=== PATIENT | female | born 1990 | race Two or more races ===

== ENCOUNTER → 2019-07-03 | Outpatient (CLI) | payer OTHER | END | disposition home or self-care (01) | LOC: LAB 14:22 | PROVIDERS: ATTEND Preventive Medicine Preventive Medicine/Occupational Environmental Medicine | DX: Z02.1 Encounter for pre-employment examination (principal) | CPT/HCPCS: 36415; 86706; 86735; 86762; 86765; 86787 ==

== ENCOUNTER → 2020-02-23 | Outpatient (CLI) | payer OTHER | END | disposition home or self-care (01) | LOC: LAB 10:08 | PROVIDERS: ATTEND Internal Medicine | DX: Z03.818 Encounter for observation for suspected exposure to other biological agents ruled out (principal) ==

== ENCOUNTER → 2020-05-06 | Outpatient (CLI) | payer OTHER | END | disposition home or self-care (01) | LOC: LAB 08:41 | PROVIDERS: ATTEND Nurse Practitioner Family | DX: U07.1 COVID-19 (principal) ==

== ENCOUNTER → 2023-08-28 | Outpatient (CLI) | payer BC ==
[2023-08-28 07:50] LABS: Basophils # (auto) 0 10 ^3/uL (0-0.2); Basophils % (auto) 0.5 % (0.0-2.0); Eosinophils # (auto) 0.1 10 ^3/uL (0-0.8); Eosinophils % (auto) 1.3 % (0.0-7.0); Hematocrit 39.5 % (36.0-46.0); Hemoglobin 13.3 g/dL (12.2-16.2); Lymphocytes # (auto) 2.1 10 ^3/uL (0.4-5.4); Lymphocytes % (auto) 27.6 % (10.0-50.0); Mean Corpuscular Hgb Conc. 33.6 g/dL (32.0-36.0); Mean Corpuscular Volume 92.4 fL (80.0-100.0); Monocytes # (auto) 0.3 10 ^3/uL (0-1.3); Monocytes % (auto) 4.5 % (0.0-12.0); Neutrophils # (auto) 4.9 10 ^3/uL (1.6-8.6); Neutrophils % (auto) 66.1 % (37.0-80.0); Nucleated Red Blood Cells % 0.1 %; Red Blood Cells 4.28 10^6/uL (4.0-5.20); Red Cell Distribution Width 13.8 % (11.8-14.3); White Blood Cell 7.5 10^3/uL (4.4-10.8)
[2023-08-28 07:58] LABS: Urine Bacteria NONE SEEN /hpf (None Seen); Urine Blood Negative /uL (Negative); Urine Clarity Clear (Clear); Urine Protein, UAD Negative (Negative); Urine Specific Gravity 1.014 (1.001-1.035); Urine Urobilinogen Normal (Negative); Urine WBC 1 /hpf (0 - 5)
[2023-08-28 07:59] LABS: Urine Color Straw (Yellow)
[2023-08-28 08:40] LABS: Alanine Aminotransferase 19 U/L (7-40); Albumin 4.9 g/dL (3.2-4.8); Alkaline Phosphatase 93 U/L (46-116); Anion Gap 8 (5-15); Aspartate Aminotransferase 15 U/L (13-40); Bilirubin, Total 0.8 mg/dL (0.2-1.0); Blood Urea Nitrogen 8 mg/dL (9-23); Calcium 9.7 mg/dL (8.5-10.1); Carbon Dioxide 26 mmol/L (20-30); Chloride 105 mmol/L (98-107); Cholesterol 169 mg/dL (< 200); Glucose 89 mg/dL (74-106); HDL Cholesterol 43 mg/dL (40-59); LDL Cholesterol 116 mg/dL (< 100); Potassium 4.3 mmol/L (3.5-5.1); Sodium 139 mmol/L (136-145); Total Protein 7.9 g/dL (5.7-8.2); Triglycerides 140 mg/dL (< 150)
== END | disposition home or self-care (01) ==
LOC: LAB 07:20
PROVIDERS: ATTEND Internal Medicine
DX: Z00.00 Encounter for general adult medical examination without abnormal findings (principal); N92.4 Excessive bleeding in the premenopausal period; E66.3 Overweight
CPT/HCPCS: 36415; 80053; 80061; 81001; 83036; 84443; 85025

== ENCOUNTER → 2023-10-25 | Outpatient (CLI) | payer BC | END | disposition home or self-care (01) | LOC: LAB 07:51 | PROVIDERS: ATTEND Internal Medicine | DX: E03.9 Hypothyroidism, unspecified (principal) | CPT/HCPCS: 36415; 84443; 86376 ==

== ENCOUNTER → 2024-08-03 | Outpatient (CLI) | payer BC ==
[2024-08-03 14:04] LABS: Basophils # (auto) 0 10 ^3/uL (0-0.2); Basophils % (auto) 0.5 % (0.0-2.0); Eosinophils # (auto) 0.1 10 ^3/uL (0-0.8); Hematocrit 38.3 % (36.0-46.0); Hemoglobin 13.4 g/dL (12.2-16.2); Lymphocytes # (auto) 2.4 10 ^3/uL (0.4-5.4); Lymphocytes % (auto) 32.4 % (10.0-50.0); Mean Corpuscular Hemoglobin 31.5 pg (28.0-32.0); Mean Corpuscular Hgb Conc. 34.9 g/dL (32.0-36.0); Mean Corpuscular Volume 90.1 fL (80.0-100.0); Monocytes # (auto) 0.3 10 ^3/uL (0-1.3); Monocytes % (auto) 3.5 % (0.0-12.0); Neutrophils # (auto) 4.6 10 ^3/uL (1.6-8.6); Neutrophils % (auto) 61.6 % (37.0-80.0); Platelet Count (auto) 340 10^3/uL (140-450); Red Blood Cells 4.25 10^6/uL (4.0-5.20); White Blood Cell 7.4 10^3/uL (4.4-10.8)
[2024-08-03 14:25] LABS: Alanine Aminotransferase 17 U/L (7-40); Albumin 4.6 g/dL (3.2-4.8); Alkaline Phosphatase 93 U/L (46-116); Anion Gap 5 (5-15); Aspartate Aminotransferase 9 U/L (13-40); BUN/Creatinine Ratio 11.3 (10.0-20.0); Blood Urea Nitrogen 9 mg/dL (9-23); Calcium 10.4 mg/dL (8.7-10.4); Carbon Dioxide 29 mmol/L (20-31); Chloride 105 mmol/L (98-107); Glucose 89 mg/dL (74-106); Potassium 4.1 mmol/L (3.5-5.1); Sodium 139 mmol/L (136-145)
[2024-08-03 14:26] LABS: Bilirubin, Total 0.6 mg/dL (0.2-1.0); Total Protein 7.3 g/dL (5.7-8.2)
[2024-08-03 14:37] LABS: Erythrocyte Sedimentation Rate 17 mm/hr (0-20)
== END | disposition home or self-care (01) ==
LOC: LAB 13:22
PROVIDERS: ATTEND Internal Medicine
DX: E03.9 Hypothyroidism, unspecified (principal); M25.511 Pain in right shoulder; M25.521 Pain in right elbow
CPT/HCPCS: 36415; 80053; 83036; 84443; 85025; 85652

== ENCOUNTER 2025-04-12 07:10 | Inpatient (IN) | payer BC ==
[2025-04-09 08:23] LABS: INR 1.01 (0.9-1.15); Partial Thromboplastin Time 27.9 SEC (24.5-34.5); Prothrombin Time 10.7 sec (9.3-11.8)
[2025-04-09 08:26] LABS: Hematocrit 41.2 % (36.0-46.0); Hemoglobin 14.2 g/dL (12.2-16.2); Mean Corpuscular Hemoglobin 31.0 pg (28.0-32.0); Mean Corpuscular Volume 89.8 fL (80.0-100.0); Nucleated Red Blood Cells % 0.1 %
[2025-04-09 08:41] LABS: Alanine Aminotransferase 14 U/L (7-40); Albumin 4.8 g/dL (3.2-4.8); Alkaline Phosphatase 69 U/L (46-116); Anion Gap 11 (5-15); BUN/Creatinine Ratio 11.6 (10.0-20.0); Bilirubin, Total 0.9 mg/dL (0.2-1.0); Blood Urea Nitrogen 8 mg/dL (9-23); Calcium 10.4 mg/dL (8.7-10.4); Carbon Dioxide 25 mmol/L (20-31); Chloride 105 mmol/L (98-107); Glucose 92 mg/dL (74-106); Potassium 4.3 mmol/L (3.5-5.1); Sodium 141 mmol/L (136-145); Total Protein 7.5 g/dL (5.7-8.2)
[2025-04-09 12:46] LABS: Urine Protein, UAD Negative (Negative)
[~2025-04-12] VITALS: Ht 152.4 cm; Wt 62.6 kg
[~2025-04-12 07:10] MED LIST: LEVO25TA6 PO
[2025-04-12] MEDS: ceFAZolin 2 GM/D5W50ml 50 ML IV ONE (08:42)
[2025-04-12] MEDS: SUCCINYLCHOLINE CHLORIDE 20 MG/ML 10ML VIAL IV ONE (09:30)
[2025-04-12] MEDS ORDERED: fentaNYL CITRATE 100 MCG/2 ML VL ONE (09:33)
[2025-04-12] MEDS ORDERED: HYDROmorphone HCL 2 MG/ML VL/or syr ONE (09:33)
[2025-04-12] MEDS ORDERED: ONDANSETRON HCL 4 MG/2 ML VIAL ONE (10:43)
[2025-04-12] MEDS ORDERED: ROCURONIUM 10MG/ML 10ML VIAL IV ONE (10:47)
[2025-04-12] MEDS: LIDOCAINE W/ EPINEPHRINE 1% 20ML VIAL ONE (11:20)
[2025-04-12] MEDS: BUPIVACAINE 0.5% P/F INJ 10 ML VIAL ONE (11:20)
[2025-04-12] MEDS ORDERED: SUGAMMADEX 200mg/2ml Vial (100MG/ML) IV ONE (11:29)
[2025-04-12] MEDS: POVIDONE IODINE 10 % TOPICAL OINT 30GM TOP ONE (11:31)
[2025-04-12 11:37] VITALS: PULSE 93; RESP 20
[2025-04-12] MEDS: D5W/SOD CHL 0.45%/KCL 20MEQ 1,000 ML IV SCH (11:45)
[2025-04-12] MEDS ORDERED: ONDANSETRON HCL 4 MG/2 ML VIAL IV PRN (11:45)
[2025-04-12] MEDS: ONDANSETRON HCL 4 MG/2 ML VIAL IV ONE (11:45)
[2025-04-12] MEDS ORDERED: MEPERIDINE HCL (25 MG/ML) 1ML VIAL IV PRN (11:45)
[2025-04-12] MEDS: HYDROmorphone HCL 2 MG/ML VL/or syr ONE (12:00)
[2025-04-12] MEDS: HYDROmorphone HCL 2 MG/ML VL/or syr IV PRN (12:14)
--- NOTE | 2025-04-12 12:19 | DVHOP ---
DATE OF SURGERY: 04/12/2025 PREOPERATIVE DIAGNOSES: Cholelithiasis, cholecystitis. POSTOPERATIVE DIAGNOSES: Cholelithiasis, cholecystitis. SURGEON: Mak Hagen MD ANESTHESIA: General endotracheal. ANESTHESIOLOGIST: Dr. Bell. PROCEDURES: Laparoscopy, laparoscopic cholecystectomy DESCRIPTION OF PROCEDURE: Under general endotracheal anesthesia, the patient's skin was prepped and draped. A supraumbilical incision was made and Veress needle inserted by the hanging drop technique in order to establish pneumoperitoneum to 15 mmHg pressure by insufflation with carbon dioxide. With the abdomen fully distended, the needle was removed and replaced with a 5-mm trocar port through which a 0-degree viewing laparoscope was inserted and under direct vision 5 and 10 mm ports were inserted through the abdominal wall at the anterior axillary line at the level of the umbilicus and in the subxiphoid skin in the midline, respectively. Instrumentation was then introduced and laparoscopy was performed. There was no evidence of unexpected pathology on the serosal surfaces visualized. The gallbladder, which was almost entirely intrahepatic, was grasped with a grasping forceps and placed on tension. The infundibular portion of the gallbladder, the cystic duct was identified and was completely obstructed by a large stone within the gallbladder. The cystic duct and cystic artery were identified, circumferentially dissected and skeletonized and traced into the hepatocystic triangle so as to minimize the potential for inadvertent injury to the common bile duct. The cystic duct and cystic artery were then divided between metallic clips placed close to the gallbladder, again attempting to avoid injury to the common bile duct. The cystic duct and cystic artery having been divided between metallic clips. The gallbladder was resected from its liver bed by electrocautery and traction. The entirely intrahepatic nature of the gallbladder made the dissection somewhat more challenging. With the gallbladder fully mobilized, it was placed into a specimen extraction bag, which was introduced through the 10-mm port site. The gallbladder being within the bag was then removed from the peritoneal cavity. The right upper quadrant was thoroughly irrigated. Irrigant was aspirated. Hemostasis was meticulously inspected and found to be complete at the termination of the procedure. There was no evidence of bleeding from either the gallbladder bed or from the port sites. The right upper quadrant was irrigated. Irrigant was then aspirated. Instrumentation was withdrawn. Pneumoperitoneum was evacuated. Fascial defect was closed using 0 Vicryl. Metallic skin elizabeth were used for approximation of skin edges. The patient remained stable throughout the procedure, left the operating room following an accurate needle and sponge count and her boyfriend, Albert, was thoroughly informed at [phone]. MD NAVEED Bermeo/JABARI TID: [id number] RECEIPT: [id number]
[2025-04-12] MEDS: diphenhdrAMINE HCL 50 MG/1 ML VL IV ONE ×2 (13:15→14:04)
[2025-04-12] MEDS: diphenhdrAMINE HCL 50 MG/1 ML VL ONE (13:18)
[2025-04-12] MEDS: ACETAMINOPHEN IV 1000 MG/100ML (10MG/ML) IV PRN (13:56)
[2025-04-12] MEDS ORDERED: ceFAZolin 2 GM/D5W50ml 50 ML IV SCH (14:00)
[2025-04-12] MEDS: ACETAMINOPHEN IV 100 ML IV ONE (14:06)
--- NOTE | 2025-04-12 14:14 | DVHHP2 ---
Review of Systems Allergies: Coded Allergies: Hydrocodone (Unverified Allergy, Intermediate, itchy, 04/07/25) Medications Current Medications Medications Dose Ordered Sig/Panchito Route Start Time Stop Time Status Last Admin Dose Admin Potassium Chloride/Dextrose/ Sod Cl 1,000 ml @ 120 mls/hr Q8H20M IV 04/12/25 11:45 04/12/25 11:45 120 MLS/HR Pantoprazole Sodium 40 mg DAILY IV 04/13/25 10:00 Ondansetron HCl 4 mg Q4HPRN PRN IV 04/12/25 11:45 Meperidine HCl 12.5 mg Q4HP PRN IV 04/12/25 11:45 Cefazolin Sodium/ Dextrose 50 ml @ 50 mls/hr Q8H IV 04/12/25 18:00 Exam Vital Signs Vital Signs Date Time Temp Pulse Resp B/P (MAP) Pulse Ox O2 Delivery O2 Flow Rate FiO2 04/12/25 13:22 81 11 101/64 (76) 100 04/12/25 11:50 Nasal Cannula 2.0 04/12/25 11:37 97.8 97.8 Labs/Xrays Labs Test 04/09/25 12:00 04/09/25 07:54 Range/Units Urine Color Light-yellow Yellow Urine Clarity Hazy H Clear Urine pH 6.5 5.0-9.0 Urine Specific [place] 1.009 1.001-1.035 Urine Protein Negative Negative Urine Ketones Negative Negative Urine Blood Negative Negative /uL Urine Nitrite Negative Negative Urine Bilirubin Negative Negative Urine Urobilinogen Normal Negative mg/dL Urine Leukocyte Esterase Negative Negative /uL Urine RBC <1 0 - 4 /hpf Urine Microscopic WBC 1 0-5 /HPF Urine Squamous Epithelial Cells Mod <5 /hpf Urine Bacteria Few H None Seen /hpf Urine Glucose Normal Normal mg/dL White Blood Count 7.4 4.4-10.8 10^3/uL Red Blood Count 4.59 4.0-5.20 10^6/uL Hemoglobin 14.2 12.2-16.2 g/dL Hematocrit 41.2 36.0-46.0 % Mean Corpuscular Volume 89.8 80.0-100.0 fL Mean Corpuscular Hemoglobin 31.0 28.0-32.0 pg Mean Corpuscular Hemoglobin Concent 34.5 32.0-36.0 g/dL Red Cell Distribution Width 13.2 11.8-14.3 % Platelet Count 321 140-450 10^3/uL Mean Platelet Volume 8.1 6.9-10.8 fL Neutrophils (%) (Auto) 64.0 37.0-80.0 % Lymphocytes (%) (Auto) 27.7 10.0-50.0 % Monocytes (%) (Auto) 5.7 0.0-12.0 % Eosinophils (%) (Auto) 2.1 0.0-7.0 % Basophils (%) (Auto) 0.5 0.0-2.0 % Neutrophils # (Auto) 4.7 1.6-8.6 10 ^3/uL Lymphocytes # (Auto) 2.0 0.4-5.4 10 ^3/uL Monocytes # (Auto) 0.4 0-1.3 10 ^3/uL Eosinophils # (Auto) 0.2 0-0.8 10 ^3/uL Basophils # (Auto) 0 0-0.2 10 ^3/uL Nucleated Red Blood Cells 0.1 % Prothrombin Time 10.7 9.3-11.8 sec Prothrombin Time INR 1.01 0.9-1.15 Activated Partial Thromboplast Time 27.9 24.5-34.5 SEC Sodium Level 141 136-145 mmol/L Potassium Level 4.3 3.5-5.1 mmol/L Chloride Level 105 98-107 mmol/L Carbon Dioxide Level 25 20-31 mmol/L Anion Gap 11 5-15 Blood Urea Nitrogen 8 L 9-23 mg/dL Creatinine 0.69 0.550-1.02 mg/dL Glomerular Filtration Rate Calc 117 >90 mL/min BUN/Creatinine Ratio 11.6 10.0-20.0 Serum Glucose 92 74-106 mg/dL Calcium Level 10.4 8.7-10.4 mg/dL Total Bilirubin 0.9 0.2-1.0 mg/dL Aspartate Amino Transferase (AST) 17 13-40 U/L Alanine Aminotransferase (ALT) 14 7-40 U/L Alkaline Phosphatase 69 46-116 U/L Total Protein 7.5 5.7-8.2 g/dL Albumin 4.8 3.2-4.8 g/dL Beta HCG, Quantitative 1.0 L 1.5-4.2 mIU/mL SEPSIS Sepsis Screen Physician Orders Loading Machine Tool Setter (04/12/25 11:44) Notify Anesth. For Changes: (04/12/25 11:44) Discharge To Room Per Criteria (04/12/25 11:44) To Pacu For Recovery (04/12/25 11:40) Oxygen Via Cool Mist Mask (04/12/25 11:40) Incentive Spirometry Q 1hr (04/12/25 11:40) Clear Liq Diet (04/12/25 Lunch) Call/Page Hospitalist/Atten Fo (04/12/25 11:40) Abdominal Binder (04/12/25 11:40) Bilirubin, Total (04/13/25 04:00) Sequential Compression Device (04/12/25 11:40) D5w/Sod Chl 0.45%/Kcl 20meq (04/12/25 11:45) Pantoprazole (Protonix) (04/13/25 10:00) Ondansetron Hcl (Zofran) (04/12/25 11:45) Meperidine Injection (Demerol Injection) (04/12/25 11:45) Page Hospitalist For Admission (04/12/25 11:40) Cefazolin 2 Gm/D8p98hm (Ancef) (04/12/25 18:00) Vital Signs Date Time Temp Pulse Resp B/P (MAP) Pulse Ox O2 Delivery O2 Flow Rate FiO2 04/12/25 13:22 81 11 101/64 (76) 100 04/12/25 12:52 68 16 110/74 (86) 100 04/12/25 12:22 70 16 116/77 (90) 100 04/12/25 12:07 63 12 110/70 (83) 100 04/12/25 11:52 77 14 113/75 (88) 98 04/12/25 11:50 Nasal Cannula 2.0 04/12/25 11:47 79 13 110/72 (85) 95 04/12/25 11:42 81 17 118/68 (85) 100 04/12/25 11:37 93 20 Mask 9.0 04/12/25 11:37 Mask 9.0 04/12/25 11:37 97.8 99 20 109/60 (76) 99 97.8 04/12/25 08:38 97.3 88 20 102/71 (81) 96 97.3 Medications Medications Dose Ordered Sig/Panchito Route Start Time Stop Time Status Last Admin Dose Admin Acetaminophen 1,000 mg [id number] PRN IV 04/12/25 11:45 04/12/25 12:22 DC 04/12/25 13:56 1,000 MG Bupivacaine HCl 10 ml STK-MED ONCE .ROUTE 04/12/25 09:10 04/12/25 09:08 DC 04/12/25 11:20 10 ML Diphenhydramine HCl 25 mg ONCE ONCE IV 04/12/25 12:45 04/12/25 12:46 DC 04/12/25 14:04 25 MG Diphenhydramine HCl 50 mg STK-MED ONCE .ROUTE 04/12/25 12:50 04/12/25 12:48 DC 04/12/25 13:18 50 MG Hydromorphone HCl 0.5 mg Q10M PRN IV 04/12/25 11:45 04/12/25 12:26 DC 04/12/25 13:18 0.5 MG Lidocaine/ Epinephrine 20 ml STK-MED ONCE .ROUTE 04/12/25 09:10 04/12/25 09:08 DC 04/12/25 11:20 10 ML Potassium Chloride/Dextrose/ Sod Cl 1,000 ml @ 120 mls/hr Q8H20M IV 04/12/25 11:45 04/12/25 11:45 120 MLS/HR Assessment/Plan Assessment/Plan SEE DICTATED NOTE Plan discussed with: Patient Date of Service: Apr 12, 2025 Billing Provider: MARIALUISA GAUTAM MD Common Visit Codes: [id number] INP/OBS CARE (HIGH) MARIALUISA GAUTAM MD Apr 12, 2025 14:14
[2025-04-12] MEDS ORDERED: HYDROcodone-ACET 5/325MG TAB PO PRN (14:15)
[2025-04-12] MEDS ORDERED: ACETAMINOPHEN 325 MG TAB PO PRN (14:15)
--- NOTE | 2025-04-12 14:29 | DVHHP ---
ADMIT DATE: 04/12/2025 HISTORY OF PRESENT ILLNESS: The patient is a 34-year-old lady who is admitted after she underwent laparoscopic cholecystectomy for cholelithiasis and chronic cholecystitis. The patient at this time complains of abdominal discomfort. No nausea, no chest pain, no shortness of breath. REVIEW OF SYSTEMS: Review of rest of systems are currently negative. PAST MEDICAL HISTORY: Significant for hypothyroidism. MEDICATIONS: She takes levothyroxine 25 mcg daily. SOCIAL HISTORY: Denies smoking or alcohol. Lives with her boyfriend. FAMILY HISTORY: Negative. PHYSICAL EXAMINATION: GENERAL: The patient is awake and alert. VITAL SIGNS: Temperature of 97.8, pulse of 70 per minute, blood pressure 116/77. SHEENT: Unremarkable. NECK: There is no JVD. No pedal edema. LUNGS: Equal bilaterally. No added sounds. CARDIOVASCULAR: S1 and S2 are regular. No murmurs. ABDOMEN: Soft. Bowel sounds are hypoactive. NEUROLOGIC: Nonfocal. MUSCULOSKELETAL: Normal. ASSESSMENT AND PLAN: * Hypothyroidism, for which she will continue on levothyroxine and the TSH will be checked. * Status post laparoscopic cholecystectomy for cholelithiasis and chronic cholecystitis, for which she will be placed on a clear liquid diet and IV fluids. MD AMARI Molina/LEANDRO TID: [id number] RECEIPT: [id number]
[2025-04-12 15:20] VITALS: RESP 18; O2SAT 95
[2025-04-12] MEDS ORDERED: diphenhdrAMINE HCL 50 MG/1 ML VL IV PRN (16:15)
[2025-04-12 17:00] VITALS: BP 101/71; PULSE 77; RESP 18; TEMP 97; O2SAT 95
[2025-04-12] MEDS: MEPERIDINE HCL (25 MG/ML) 1ML VIAL IV PRN (17:10)
[2025-04-12] MEDS: ceFAZolin 2 GM/D5W50ml 50 ML IV SCH (17:10)
[2025-04-12] MEDS: ONDANSETRON HCL 4 MG/2 ML VIAL IV PRN (18:47)
[2025-04-12 21:00] VITALS: BP 98/66; PULSE 74; RESP 18; TEMP 97.6; O2SAT 98
[2025-04-13] VITALS: BP 110/80; PULSE 89
[2025-04-13] MEDS ORDERED: MORPHINE SULFATE INJ 2 MG/ml SYRG IV ONE (00:15)
[2025-04-13] MEDS: METOCLOPRAMIDE HCL 5MG/ml INJ 2ml VIAL IV ONE (00:23)
[2025-04-13 01:00] VITALS: BP 103/71; PULSE 69; RESP 18; TEMP 97.8; O2SAT 97
[2025-04-13 05:00] VITALS: BP 105/67; PULSE 88; RESP 18; TEMP 97.7; O2SAT 96
[2025-04-13 05:56] LABS: Hematocrit 32.4 % (36.0-46.0); Hemoglobin 11.2 g/dL (12.2-16.2); Mean Corpuscular Hemoglobin 31.0 pg (28.0-32.0); Mean Corpuscular Volume 90.0 fL (80.0-100.0); Nucleated Red Blood Cells % 0.0 %
[2025-04-13] MEDS: LEVOTHYROXINE SODIUM 25 MCG TAB PO SCH (06:00)
[2025-04-13 06:31] LABS: Alanine Aminotransferase 23 U/L (7-40); Albumin 4.1 g/dL (3.2-4.8); Alkaline Phosphatase 59 U/L (46-116); Anion Gap 7 (5-15); Bilirubin, Total 0.7 mg/dL (0.2-1.0); Calcium 9.1 mg/dL (8.7-10.4); Carbon Dioxide 26 mmol/L (20-31); Chloride 105 mmol/L (98-107); Glucose 105 mg/dL (74-106); Potassium 4.0 mmol/L (3.5-5.1); Sodium 138 mmol/L (136-145); Total Protein 6.3 g/dL (5.7-8.2)
[2025-04-13 06:32] LABS: BUN/Creatinine Ratio 9.6 (10.0-20.0); Blood Urea Nitrogen < 5 mg/dL (9-23)
[2025-04-13 08:30] VITALS: BP 104/69; PULSE 97; RESP 17; TEMP 97.7; O2SAT 97
[2025-04-13] MEDS: PANTOPRAZOLE 40 MG/10 ML VIAL INJ IV SCH (10:37)
--- NOTE | 2025-04-13 11:00 | DVHDS2 ---
Discharge Summary Date of Admission Apr 12, 2025 at 14:11 Date of Discharge: Apr 13, 2025 Labs/Diagnostic Data: Laboratory Results Test 04/13/25 05:25 04/09/25 12:00 04/09/25 07:54 White Blood Count 9.7 10^3/uL (4.4-10.8) Red Blood Count 3.61 10^6/uL (4.0-5.20) Hemoglobin 11.2 g/dL (12.2-16.2) Hematocrit 32.4 % (36.0-46.0) Mean Corpuscular Volume 90.0 fL (80.0-100.0) Mean Corpuscular Hemoglobin 31.0 pg (28.0-32.0) Mean Corpuscular Hemoglobin Concent 34.5 g/dL (32.0-36.0) Red Cell Distribution Width 13.0 % (11.8-14.3) Platelet Count 305 10^3/uL (140-450) Mean Platelet Volume 8.0 fL (6.9-10.8) Neutrophils (%) (Auto) 83.0 % (37.0-80.0) Lymphocytes (%) (Auto) 10.6 % (10.0-50.0) Monocytes (%) (Auto) 6.3 % (0.0-12.0) Eosinophils (%) (Auto) 0.0 % (0.0-7.0) Basophils (%) (Auto) 0.1 % (0.0-2.0) Neutrophils # (Auto) 8.1 10 ^3/uL (1.6-8.6) Lymphocytes # (Auto) 1.0 10 ^3/uL (0.4-5.4) Monocytes # (Auto) 0.6 10 ^3/uL (0-1.3) Eosinophils # (Auto) 0 10 ^3/uL (0-0.8) Basophils # (Auto) 0 10 ^3/uL (0-0.2) Nucleated Red Blood Cells 0.0 % Sodium Level 138 mmol/L (136-145) Potassium Level 4.0 mmol/L (3.5-5.1) Chloride Level 105 mmol/L (98-107) Carbon Dioxide Level 26 mmol/L (20-31) Anion Gap 7 (5-15) Blood Urea Nitrogen < 5 mg/dL (9-23) Creatinine 0.52 mg/dL (0.550-1.02) Glomerular Filtration Rate Calc 126 mL/min (>90) BUN/Creatinine Ratio 9.6 (10.0-20.0) Serum Glucose 105 mg/dL (74-106) Calcium Level 9.1 mg/dL (8.7-10.4) Total Bilirubin 0.7 mg/dL (0.2-1.0) Aspartate Amino Transferase (AST) 28 U/L (13-40) Alanine Aminotransferase (ALT) 23 U/L (7-40) Alkaline Phosphatase 59 U/L (46-116) Total Protein 6.3 g/dL (5.7-8.2) Albumin 4.1 g/dL (3.2-4.8) Thyroid Stimulating Hormone (TSH) 1.09 uIU/mL (0.55-4.78) Urine Color Light-yellow (Yellow) Urine Clarity Hazy (Clear) Urine pH 6.5 (5.0-9.0) Urine Specific [place] 1.009 (1.001-1.035) Urine Protein Negative (Negative) Urine Ketones Negative (Negative) Urine Blood Negative /uL (Negative) Urine Nitrite Negative (Negative) Urine Bilirubin Negative (Negative) Urine Urobilinogen Normal mg/dL (Negative) Urine Leukocyte Esterase Negative /uL (Negative) Urine RBC <1 /hpf (0 - 4) Urine Microscopic WBC 1 /HPF (0-5) Urine Squamous Epithelial Cells Mod /hpf (<5) Urine Bacteria Few /hpf (None Seen) Urine Glucose Normal mg/dL (Normal) Prothrombin Time 10.7 sec (9.3-11.8) Prothrombin Time INR 1.01 (0.9-1.15) Activated Partial Thromboplast Time 27.9 SEC (24.5-34.5) Beta HCG, Quantitative 1.0 mIU/mL (1.5-4.2) Other Laboratory Tests 04/13/25 05:25 Brief Hx & Hospital Course: see dictated note Condition at Discharge: Good Final Diagnosis/Problems List lap raymond Discharge Disposition: Home Discharge Instruct/Medications Diet: Regular Activity: No Restrictions, As Tolerated Follow Up/Referral: schedule appt with dr Hagen in 1 wk Medications: dc home after lunch script to pharmacy Scheduled Levothyroxine Sodium (Levothyroxine Sodium), 25 MCG PO QPM, (Reported) Discharge Statement: "Patient was advised to return to the ER or call 911 if any headaches, dizziness, shortness of breath, chest pain, abdominal pain, bleeding, fevers, or worsening of medical condition. Patient was counseled about treatment plan, medications, possible side effects, patientverbalized understanding. All questions were answered to the best of my ability. This discharge took greater then 30 minutes in planning, reviewing documentation, counseling the patient, and discussing with other team members." ASSESSMENT ASSESSMENT Assessment darshan andrade Date of Service: Apr 13, 2025 Billing Provider: MARIALUISA GAUTAM MD Common Visit Codes: [id number] DISCH DAY >30min MARIALUISA GAUTAM MD Apr 13, 2025 11:00
[2025-04-13] MEDS ORDERED: DOCU-94 PO (11:03)
[2025-04-13] MEDS ORDERED: TRAM-626 PO (11:03)
[2025-04-13] MEDS ORDERED: CEPH500C PO (11:03)
--- NOTE | 2025-04-13 11:11 | DVHDS ---
HISTORY OF PRESENT ILLNESS: The patient is a 34-year-old lady who is admitted after she underwent surgery for cholelithiasis and chronic cholecystitis. She has previous history of hypothyroidism. HOSPITAL COURSE: The patient did well postoperatively. She has been ambulating independently. The patient will be discharged after lunch to be on Keflex 500 mg t.i.d. for 7 days, tramadol p.r.n. for pain, and Colace p.r.n. for constipation. She will follow up with Dr. Avina in 1 week. She will resume the rest of her home medications. FINAL DIAGNOSES: * Hypothyroidism. * Status post laparoscopic cholecystectomy for cholelithiasis and chronic cholecystitis. Time spent in discharge planning and review of plan with the patient and nursing was 37 minutes. MD AMARI Molina/YVAN TID: [id number] RECEIPT: [id number]
[2025-04-13 12:37] VITALS: BP 116/84; PULSE 86; RESP 18; TEMP 96.6; O2SAT 98
[2025-04-13] MEDS ORDERED: PROPOFOL 10 MG/ML 20 ML IV ONE (13:56)
== END 2025-04-13 16:08 | disposition home or self-care (01) | DRG 419 ==
LOC: EEVIPCON → SUR 07:10 → OVERFLOW 14:11 → EAST 15:22
PROVIDERS: ADMIT Internal Medicine; ATTEND Internal Medicine
PROC: 0FT44ZZ Resection of Gallbladder, Percutaneous Endoscopic Approach (ICD-10-PCS; principal; 2025-04-12 10:34)
DX: K80.10 Calculus of gallbladder with chronic cholecystitis without obstruction (principal); E03.9 Hypothyroidism, unspecified; K59.00 Constipation, unspecified; Z88.8 Allergy status to other drugs, medicaments and biological substances; Z79.890 Hormone replacement therapy
CPT/HCPCS: 36415; 80053; 81001; 84443; 84702; 85025; 85610; 85730; 86850; 86900; 86901; G0378; J0131; J0330; J1100; J2405; J2470; J2704; J3490